=== PATIENT | male | born 1985 | race African-American/Black ===

== ENCOUNTER 2024-01-07 10:49 | Emergency (ER) | payer OTHER ==
[~2024-01-07] VITALS: Ht 182.9 cm; Wt 67.6 kg
[2024-01-07 10:54] VITALS: BP 113/76; PULSE 77; RESP 16; TEMP 98.3; O2SAT 97
[2024-01-07] MEDS ORDERED: LIDOCAINE MPF 1% 5 ML ONE (12:19)
[2024-01-07] MEDS ORDERED: cefTRIAXone 500 MG VIAL ONE (12:19)
[2024-01-07 12:26] LABS: APPEARANCE,URINE CLEAR (CLEAR); BILIRUBIN,URINE NEGATIVE (NEGATIVE); BLOOD, URINE NEGATIVE (NEGATIVE); COLOR,URINE YELLOW (YELLOW); LEUKOCYTE ESTERASE ,URINE NEGATIVE (NEGATIVE); NITRITE, URINE NEGATIVE (NEGATIVE); PROTEIN,URINE NEGATIVE (NEGATIVE); UGLUCOSE NEGATIVE (NEGATIVE); UROBILINOGEN,URINE 0.2 EU/dL (0.2 - 1)
[2024-01-07] MEDS: cefTRIAXone 500 MG in LIDOCAINE MPF 1% 1 ML IM ONE (12:26)
[2024-01-07] MEDS ORDERED: DOXY-690 PO (12:41)
== END 2024-01-07 12:50 | disposition home or self-care (01) ==
LOC: MED 10:49
DX: R30.0 Dysuria (principal); R36.9 Urethral discharge, unspecified; Z79.2 Long term (current) use of antibiotics; Z88.0 Allergy status to penicillin
CPT/HCPCS: 81003; 87491; 96372; 99283; J0696; J2001

== ENCOUNTER 2024-01-27 18:37 | Emergency (ER) | payer OTHER ==
[~2024-01-27] VITALS: Ht 182.9 cm; Wt 66.7 kg
[~2024-01-27 18:37] MED LIST: DOXY-690 PO
[2024-01-27 18:55] VITALS: BP 122/85; PULSE 84; RESP 19; TEMP 98.1; O2SAT 98
[2024-01-27 20:21] VITALS: BP 119/79; PULSE 86; RESP 18; TEMP 98; O2SAT 98
== END 2024-01-27 20:21 | disposition home or self-care (01) ==
LOC: MED 18:37
DX: M79.18 Myalgia, other site (principal); Z79.899 Other long term (current) drug therapy; Z88.0 Allergy status to penicillin
CPT/HCPCS: 99281

== ENCOUNTER 2024-02-11 17:57 | Emergency (ER) | payer OTHER ==
[~2024-02-11] VITALS: Ht 182.9 cm; Wt 72.6 kg
[2024-02-11 18:25] VITALS: BP 122/66; PULSE 82; RESP 20; TEMP 97.6; O2SAT 96
[2024-02-11 21:56] LABS: APPEARANCE,URINE CLEAR (CLEAR); COLOR,URINE YELLOW (YELLOW)
[2024-02-11 21:57] LABS: BILIRUBIN,URINE NEGATIVE (NEGATIVE); BLOOD, URINE NEGATIVE (NEGATIVE); PROTEIN,URINE NEGATIVE (NEGATIVE); UGLUCOSE NEGATIVE (NEGATIVE)
[2024-02-11 21:58] LABS: LEUKOCYTE ESTERASE ,URINE NEGATIVE (NEGATIVE); NITRITE, URINE NEGATIVE (NEGATIVE); UROBILINOGEN,URINE 0.2 EU/dL (0.2 - 1)
== END 2024-02-11 22:02 | disposition home or self-care (01) ==
LOC: MED 17:57
DX: N50.812 Left testicular pain (principal); N50.811 Right testicular pain; R30.0 Dysuria; Z11.3 Encounter for screening for infections with a predominantly sexual mode of transmission; Z79.899 Other long term (current) drug therapy; Z88.0 Allergy status to penicillin
CPT/HCPCS: 76870; 81003; 86592; 87491; 99284

== ENCOUNTER 2024-02-18 23:35 | Emergency (ER) | payer OTHER ==
[~2024-02-18] VITALS: Ht 182.9 cm; Wt 72.1 kg
[2024-02-18 23:48] VITALS: BP_SYST 72; PULSE 94; RESP 16; TEMP 97.5; O2SAT 94
[2024-02-19 01:23] VITALS: BP_SYST 72; PULSE 94; RESP 16; TEMP 97.5; O2SAT 94
[2024-02-19 01:36] LABS: APPEARANCE,URINE CLEAR (CLEAR); BILIRUBIN,URINE NEGATIVE (NEGATIVE); BLOOD, URINE NEGATIVE (NEGATIVE); COLOR,URINE YELLOW (YELLOW); LEUKOCYTE ESTERASE ,URINE NEGATIVE (NEGATIVE); NITRITE, URINE NEGATIVE (NEGATIVE); PROTEIN,URINE NEGATIVE (NEGATIVE); UGLUCOSE NEGATIVE (NEGATIVE); UROBILINOGEN,URINE 0.2 EU/dL (0.2 - 1)
[2024-02-19] MEDS: IBUPROFEN 600 MG TAB PO ONE (02:24)
== END 2024-02-19 02:25 | disposition home or self-care (01) ==
LOC: MED 23:35
DX: R30.0 Dysuria (principal); N50.819 Testicular pain, unspecified; Z79.899 Other long term (current) drug therapy; Z88.0 Allergy status to penicillin
CPT/HCPCS: 81003; 99283